=== PATIENT | male | born 1935 | race Caucasian/White ===

== ENCOUNTER 2021-09-13 20:14 | Emergency (ER) | payer OTHER ==
[~2021-09-13] VITALS: Ht 170.2 cm; Wt 72.6 kg
[2021-09-13 20:29] VITALS: BP 150/82
--- NOTE | 2021-09-13 20:29 | NUR ---
Dr. Ford examining patient at [facility].
[2021-09-13] MEDS ORDERED: HYDROcodone/APAP 5/325 MG 1 TAB TAB PO ONE (20:30)
[2021-09-13] MEDS ORDERED: GABAPENTIN 300 MG CAP PO ONE (20:30)
--- NOTE | 2021-09-13 20:35 | NUR ---
PT TAKEN TO XRAY
[2021-09-13] MEDS ORDERED: ACETAMINOPHEN EXTRA STRENGTH 500 MG TAB PO ONE (21:05)
--- NOTE | 2021-09-13 21:08 | NUR ---
PT MEDICATED PER [facility] ORDERS.
[2021-09-13] MEDS ORDERED: GABA300C PO (21:42)
[2021-09-13] MEDS ORDERED: IBUP-2213 PO (21:46)
[2021-09-13 21:54] VITALS: BP 138/87
--- NOTE | 2021-09-13 21:54 | NUR ---
Patient discharged with v/s stable. Written and verbal after care instructions given and explained. Patient alert, oriented and verbalized understanding of instructions. Ambulatory with steady gait. All questions addressed prior to discharge. ID band removed. Patient advised to follow up with PMD. Rx of Gabapentin given. Patient educated on indication of medication including possible reaction and side effects. Opportunity to ask questions provided and answered.
== END 2021-09-13 21:54 | disposition home or self-care (01) ==
LOC: MED 20:14
DX: M54.31 Sciatica, right side (principal)
CPT/HCPCS: 72100; 73502; 99284